=== PATIENT | female | born 1990 | race Caucasian/White ===

== ENCOUNTER 2020-03-22 10:14 | Emergency (ER) | payer OTHER ==
[2020-03-22] MEDS ORDERED: HYDROmorphone 1 MG/ML Syringe IVPUSH ONE (10:36)
[2020-03-22] MEDS ORDERED: Metoclopramide 10 MG/2 ML SDV IVPUSH ONE (10:37)
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
[2020-03-22] MEDS ORDERED: Ketorolac 30 MG/ML SDV IVPUSH SCH (10:45)
[2020-03-22] MEDS ORDERED: Sodium Chloride 0.9% 1,000 ML IV SCH (10:45)
--- NOTE | 2020-03-22 11:42 | CT ---
Renal ultrasound: Multiple real-time images of the kidneys were obtained. Kidneys show hydronephrosis on the right side with dilated ureter down to the UVJ. This finding is caused by distal obstructing ureteral stone located at the UVJ measuring 3.9 mm. No other ureteral calculi are seen. No other renal calculi are noted. Visualized lung bases show nothing acute. Liver shows fatty infiltration. Spleen size is normal. Adrenal glands show no nodule. Pancreas shows no discrete abnormality. Aorta shows no aneurysm. No retroperitoneal adenopathy or mesenteric abnormalities are seen. Appendix is seen which is normal. Essure devices are in place. No pelvic mass or adenopathy is appreciated. Artifact noted from orthopedic hardware within the pelvis. Impression: 1. Right-sided hydronephrosis caused by a 3.9 mm obstructing stone within the distal right ureter at the UVJ. 2. Fatty infiltration within the liver. 3. No other acute finding is appreciated on this noncontrast CT study of the abdomen and pelvis. Diagnostic code #3 This report was dictated in MDT
[2020-03-22] MEDS ORDERED: HYDROmorphone 0.5 MG/0.5 ML Syringe IVPUSH ONE (11:43)
== END 2020-03-22 12:24 | disposition home or self-care (01) ==
LOC: JD.ED 10:14
DX: N13.2 Hydronephrosis with renal and ureteral calculous obstruction (principal); R11.2 Nausea with vomiting, unspecified
CPT/HCPCS: 36415; 74176; 84702; 96361; 96374; 96375; 96376; 99284; J1170; J1885; J2765; J7030; 99283

== ENCOUNTER 2024-06-03 06:51 | Inpatient (IN) | payer BC ==
[2024-06-03] MEDS: Sodium Chloride 0.9% 10 ML Syringe FLUSH PRN ×2 (07:28→08:34)
[2024-06-03] MEDS: Sodium Chloride 0.9% 1,000 ML IV ONE (07:28)
[2024-06-03] MEDS: Morphine 4 MG/ML Syringe IVPUSH ONE (07:29)
[2024-06-03 07:30] LABS: BASOPHILS PERCENT AUTO 0.3 % (0.0-1.0); EOSINOPHILS ABSOLUTE AUTO 0.1 K/mm3 (0.0-0.4); EOSINOPHILS PERCENT AUTO 0.6 % (0.0-6.0); HEMATOCRIT 40.7 % (37.0-47.0); HEMOGLOBIN 13.6 gm/dl (12.0-16.0); IMMATURE GRAN ABSOLUTE AUTO 0.02 K/mm3 (0.00-0.05); IMMATURE GRAN PERCENT AUTO 0.2 % (0.0-0.4); LYMPHOCYTES ABSOLUTE AUTO 1.4 K/mm3 (1.0-4.8); LYMPHOCYTES PERCENT AUTO 15.2 % (24.0-44.0); MEAN CORPUSCULAR HEMOGLOBIN 29.6 pg (28.0-32.0); MEAN CORPUSCULAR HGB CONC 33.4 g/dl (32.0-36.0); MEAN CORPUSCULAR VOLUME 88.5 fl (83.0-99.0); MEAN PLATELET VOLUME 9.1 fl (9.4-12.3); MONOCYTES ABSOLUTE AUTO 0.8 K/mm3 (0.0-0.8); MONOCYTES PERCENT AUTO 8.2 % (0.0-8.0); NEUTROPHILS PERCENT AUTO 75.5 % (41.0-71.0); PLATELET COUNT,PLT 360 K/mm3 (150-400); WHITE BLOOD CELL COUNT,WBC 9.29 K/mm3 (3.9-11.3)
[2024-06-03 07:45] LABS: ALANINE AMINOTRANSFERASE,ALT 21 U/L (14-59); ALBUMIN 3.8 g/dl (3.4-5.0); ALKALINE PHOSPHATASE 88 U/L (46-116); ANION GAP 8.8 (5-15); ASPARTATE AMNIOTRANSFERASE,AST 13 U/L (15-37); BILIRUBIN TOTAL 1.5 mg/dL (0.2-1.0); BLOOD UREA NITROGEN,BUN 14 mg/dL (7-18); CALCIUM 8.8 mg/dL (8.5-10.1); CARBON DIOXIDE,CO2 28 mEq/L (21-32); CHLORIDE,CL 104 mEq/L (98-107); EST CRCL DRUG DOSING (CG) 73.35 mL/min; ESTIMATED GFR 77 mL/min (>60); GLUCOSE RANDOM 106 mg/dL (70-99); LIPASE 22 U/L (16-77); POTASSIUM,K 3.8 mEq/L (3.5-5.1); PROTEIN TOTAL,TP 7.7 g/dl (6.4-8.2); SODIUM,NA 137 mEq/L (136-145)
[2024-06-03 07:46] LABS: TROPONIN I HIGH SENSITIVITY < 4 pg/mL (<=51)
[2024-06-03] MEDS: Iopamidol 612 MG/ML 100 ML Bottle IVPUSH ONE (08:34)
[2024-06-03] MEDS: Ketorolac 15 MG/ML SDV IVPUSH ONE ×2 (08:53→12:55)
[2024-06-03 09:04] LABS: APPEARANCE,URINE CLEAR (Clear); BILIRUBIN,URINE NEGATIVE (Negative); COLOR,URINE YELLOW (Yellow); GLUCOSE,URINE NEGATIVE (Negative); KETONES,URINE NEGATIVE (Negative); LEUKOCYTE ESTERASE,URINE NEGATIVE (Negative); NITRITE,URINE NEGATIVE (Negative); OCCULT BLOOD,URINE NEGATIVE (Negative); PROTEIN,URINE NEGATIVE (Negative); UROBILINOGEN,URINE 0.2 (0.2-1.0)
[2024-06-03] MEDS: cefTRIAXone 1 GM in Sodium Chloride 0.9% 100 ML IV ONE (11:38)
[2024-06-03] MEDS ORDERED: Midazolam 1 MG/ML 2 ML SDV ONE (14:49)
[2024-06-03] MEDS ORDERED: dexmedeTOMIDine HCl 200 MCG/2 ML SDV ONE (14:49)
[2024-06-03] MEDS ORDERED: Propofol 200 MG/20 ML SDV ONE (14:49)
[2024-06-03] MEDS ORDERED: fentaNYL 250 MCG/5 ML SDV ONE (14:49)
[2024-06-03] MEDS ORDERED: Ondansetron 4 MG/2 ML SDV ONE (14:50)
[2024-06-03] MEDS ORDERED: Ketorolac 15 MG/ML SDV ONE (14:50)
[2024-06-03] MEDS ORDERED: Rocuronium 50 MG/5 ML Vial ONE ×2 (14:50→16:30)
[2024-06-03] MEDS ORDERED: Lidocaine 1% 5 ML VIAL ONE (14:50)
[2024-06-03] MEDS ORDERED: Sodium Chloride 0.9% 100 ML ONE (14:55)
[2024-06-03] MEDS ORDERED: Lidocaine 1% 30 ML SDV ONE (15:58)
[2024-06-03] MEDS ORDERED: Lactated Ringers 1,000 ML IV ONE ×2 (16:15→17:30)
[2024-06-03] MEDS ORDERED: fentaNYL 100 MCG/2 ML SDV IVPUSH PRN (16:18)
[2024-06-03] MEDS ORDERED: Sodium Chloride 0.9% 10 ML Syringe FLUSH PRN (16:18)
[2024-06-03] MEDS ORDERED: Esmolol 100 MG/10 ML SDV ONE (16:30)
[2024-06-03] MEDS ORDERED: ceFAZolin 2 GM Vial ONE (16:30)
[2024-06-03] MEDS ORDERED: Metoprolol Tartrate 5 MG/5 ML SDV ONE (16:33)
[2024-06-03] MEDS: Lidocaine 1% 30 ML SDV ONE (16:46)
[2024-06-03] MEDS ORDERED: Sugammadex Sodium 200 MG/2 ML VIAL IV ONE (17:23)
[2024-06-03] MEDS: Iopamidol 612 MG/ML 30 ML SDV ONE (17:44)
[2024-06-03] MEDS ORDERED: oxyCODONE 5 MG Tab PO PRN (19:07)
[2024-06-03] MEDS: HYDROmorphone 0.5 MG/0.5 ML Syringe IVPUSH PRN (19:09)
[2024-06-03] MEDS: Ondansetron 4 MG/2 ML SDV IVPUSH PRN (20:07)
[2024-06-03] MEDS: Piperacillin/Tazobactam 4.5 GM in Sodium Chloride 0.9% 100 ML IV ONE (20:32)
[2024-06-03] MEDS: Acetaminophen 325 MG Tab PO SCH (20:34)
[2024-06-03] MEDS: Sodium Chloride 0.9% 10 ML Syringe FLUSH SCH (20:34)
[2024-06-03] MEDS: Lactated Ringers 1,000 ML IV SCH (21:11)
[2024-06-03] MEDS: Ibuprofen Susp 100 MG/5 ML 5 ML UD Cup PO SCH (21:31)
[2024-06-04] MEDS: Ondansetron 4 MG/2 ML SDV IVPUSH PRN (03:40)
[2024-06-04] MEDS: Piperacillin/Tazobactam 4.5 GM in Sodium Chloride 0.9% 100 ML IV SCH (03:43)
[2024-06-04 05:06] LABS: BASOPHILS PERCENT AUTO 0.2 % (0.0-1.0); EOSINOPHILS PERCENT AUTO 0.2 % (0.0-6.0); HEMATOCRIT 32.4 % (37.0-47.0); HEMOGLOBIN 10.8 gm/dl (12.0-16.0); IMMATURE GRAN ABSOLUTE AUTO 0.02 K/mm3 (0.00-0.05); IMMATURE GRAN PERCENT AUTO 0.2 % (0.0-0.4); LYMPHOCYTES PERCENT AUTO 11.1 % (24.0-44.0); MEAN CORPUSCULAR HEMOGLOBIN 29.9 pg (28.0-32.0); MEAN CORPUSCULAR HGB CONC 33.3 g/dl (32.0-36.0); MEAN CORPUSCULAR VOLUME 89.8 fl (83.0-99.0); MEAN PLATELET VOLUME 10.3 fl (9.4-12.3); MONOCYTES ABSOLUTE AUTO 0.9 K/mm3 (0.0-0.8); NEUTROPHILS ABSOLUTE AUTO 7.3 K/mm3 (1.8-7.7); NEUTROPHILS PERCENT AUTO 78.3 % (41.0-71.0); PLATELET COUNT,PLT 244 K/mm3 (150-400); RED BLOOD CELL COUNT 3.61 M/mm3 (4.10-5.30); WHITE BLOOD CELL COUNT,WBC 9.33 K/mm3 (3.9-11.3)
[2024-06-04 05:39] LABS: A/G RATIO 0.9 (1-2); ALBUMIN 2.8 g/dl (3.4-5.0); ANION GAP 13.1 (5-15); BILIRUBIN TOTAL 2.2 mg/dL (0.2-1.0); BUN/CREATININE RATIO 11.1 (14-18); CALCIUM 7.9 mg/dL (8.5-10.1); CREATININE 0.9 mg/dL (0.55-1.02); EST CRCL DRUG DOSING (CG) 81.5 mL/min; MAGNESIUM 1.7 mg/dL (1.8-2.4); PHOSPHORUS 3.6 mg/dL (2.6-4.7); POTASSIUM,K 4.1 mEq/L (3.5-5.1); PROTEIN TOTAL,TP 5.9 g/dl (6.4-8.2)
[2024-06-04] MEDS: Magnesium Sulfate/Water 4 GM in Premix Bag 1 BAG IV ONE (09:35)
[2024-06-04] MEDS: Enoxaparin 40 MG/0.4 ML Syringe SUBCUT SCH (12:12)
== END 2024-06-04 13:50 | DRG 263 ==
LOC: JD.ED 06:51 → JD.MS 15:32 → JD.ICU 16:27 → JD.MS 16:33 → JD.OB 06-04 06:13
PROVIDERS: ADMIT Student in an Organized Health Care Education/Training Program; ATTEND Student in an Organized Health Care Education/Training Program
PROC: 0FT44ZZ Resection of Gallbladder, Percutaneous Endoscopic Approach (ICD-10-PCS; principal; 2024-06-03 16:15)
DX: K80.42 Calculus of bile duct with acute cholecystitis without obstruction (principal); Z79.899 Other long term (current) drug therapy; Z98.890 Other specified postprocedural states; Z87.442 Personal history of urinary calculi
CPT/HCPCS: 00790; 36415; 71045; 71045-26; 74177; 74177-26; 74300; 74300-26; 76705; 76705-26; 80053; 81003; 83690; 83735; 84100; 84484; 84703; 85025; 88304; 93005; 93010; 96365; 96375; 96376; 99140; 99285; 99285-25; A9270-GY; C1713; J0690; J0696; J1170; J1650; J1885; J2250; J2270; J2405; J2543; J2704; J3010; J3475; J3490; J7030; J7120; Q9967